=== PATIENT | female | born 1960 | race Caucasian/White ===

== ENCOUNTER 2017-02-12 22:35 | Emergency (ER) | payer MEDICAID, OTHER ==
[2017-02-12 22:44] VITALS: TEMP 97.3
--- NOTE | 2017-02-12 22:55 | CPEKG ---
Heart Rate: 54 RR Interval: 1111 P-R Interval: 152 QRSD Interval: 90 QT Interval: 484 QTC Interval: 459 P Rialto: 12 QRS Rialto: 49 T Wave Rialto: 78 EKG Severity - NORMAL ECG - EKG Impression: SINUS RHYTHM Electronically Signed By: Mari aEsther Hu 13-Feb-2017 07:27:42
--- NOTE | 2017-02-12 23:05 | EDPHY ---
H & P Stated Complaint: nausea, dizzy, substernal pressure since 1800 Source: Patient Exam Limitations: No limitations - Personal History Current Tetanus/Diphtheria Vaccine: Yes Current Tetanus Diphtheria and Acellular Pertussis (TDAP): Yes Tetanus Vaccine Date: < 10 YEARS - Medical/Surgical History Hx Asthma: No Hx Chronic Respiratory Disease: No Hx Diabetes: No Hx Cardiac Disease: No Hx Renal Disease: No Hx Cirrhosis: No Hx Alcoholism: No Hx HIV/AIDS: No Hx Splenectomy or Spleen Trauma: No Other PMH: MIGRAINES - Social History Smoking Status: Never smoked HPI/ROS: CHIEF COMPLAINT: Chest Pain, nausea, dizziness HISTORY OF PRESENT ILLNESS: Complains of sudden onset of nausea and dizziness while doing an exercise in a supine position around 6:00 p.m.. This has been constant. [id number]. Worse with change of head position. Chest pain that started around 8:00 p.m. and lasted until 10:00 p.m.. It is described as a mild pressure. Did not radiate. No diaphoresis. No shortness of breath. No abdominal pain. No recent travel or surgery. No history of venous thrombolic event. No previous history of chest pain or chest pain workup. No coronary artery disease, hypertension, diabetes, dyslipidemia. Does describe a previous history of vertigo without formal treatment. No other associated complaints or modifying factors. FAMILY HISTORY CARDIAC: Denies PRIOR CARDIAC WORKUP: None REVIEW OF SYSTEMS: Ten systems reviewed and are negative unless otherwise noted in the HPI EXAMINATION: General Appearance: Alert, no distress Head: normocephalic, atraumatic Eyes: Pupils equal and round, no conjunctival pallor or injection. EOMs intact. Horizontal nystagmus. No vertical nystagmus. ENT, Mouth: Mucous membranes moist. Uvula midline. No erythema or edema. Neck: Normal inspection, supple, non-tender Respiratory: Lungs are clear to auscultation. No wheezing, rhonchi or crackles. Cardiovascular: Regular rate and rhythm. No murmur. Pulses intact distally. No carotid bruits. Gastrointestinal: Abdomen is soft and nontender Back: non-tender, no bony abnormalities Neurological: GCS 15. A&O, nonfocal, strength is symmetric in all 4 limbs. Normal steady gait. No pronator drift. No dysmetria. NIH stroke scale is 0. Skin: Warm and dry, no rash Extremities: Nontender, no pedal edema Psychiatric: Mood and affect normal DIFFERENTIAL DIAGNOSES: Including but not limited to in no particular order: Acute Chest Pain, ACS, Stable Angina, Pneumonia, PE, duodenitis, gastritis, esophagitis, GERD MDM: 11:05 p.m. Dizziness and nausea consistent with vertigo since 6:00 p.m.. Chest pressure that lasted from 8-10 p.m. and is no longer present. Vital signs stable. Laboratory studies and chest x-ray are pending. EKG is unremarkable. She is resting comfortably in no acute distress. She has declined meclizine 12:35 a.m. Troponin is negative. She remains mildly dizzy but has declined meclizine several times. We discussed her findings. I also discussed that she likely has vertigo. I recommended admission for ACS rule out with subsequent troponins as her 1st 1 was drawn at approximately 3:00 a.m.. She has declined. We discussed the risks , benefits and alternatives. She is capable making the decision assuming the risk including CO, worsening condition, , stroke. She understands the risks and would still like to be discharged home. She has still declined the medication and will return should her symptoms change. EKG: Interpreted by Dr. Hu Normal sinus rhythm without acute ischemia. SUPERVISION: Case discussed with Dr. Hu ([facility]) Constitutional: Initial Vital Signs Temperature (C) 36.3 C 02/12/17 22:37 Heart Rate 68 02/12/17 22:37 Respiratory Rate 20 02/12/17 22:37 Blood Pressure 153/101 H 02/12/17 22:37 O2 Sat (%) 100 02/12/17 22:37 O2 Delivery Mode Room Air Allergies/Adverse Reactions: No Known Allergies Allergy (Verified 02/12/17 22:44) Home Medications: Medication Instructions Recorded Aspirin 325 mg (*) 02/12/17 Medical Decision Making - Diagnostics EKG Interpretation: EKG: Complete interpretation has been separately recorded in the [employer] archive. Summary impression: No ischemic changes (Maria Esther Hu) Imaging Results: Imaging Impressions Chest X-Ray 02/12/17 23:05 Impression: No acute localizing features. Other Provider: PHYSICIAN DOCUMENTATION: The patient was evaluated and managed by the Physician Traffic Signal Mechanic. My co- signature indicates that I have reviewed this chart and I agree with the findings and plan of care as documented. I am the secondary supervising physician. (Maria Esther Hu) - Data Points Laboratory Results: Laboratory Results 02/12/17 23:00 02/12/17 23:25 02/12/17 02/12/17 02/12/17 23: 23:00 23:00 WBC RBC Hgb Hct MCV MCH MCHC RDW Plt Count MPV Neut % (Auto) Lymph % (Auto) [place] % (Auto) Eos % (Auto) Baso % (Auto) Nucleat RBC Rel Count Absolute Neuts (auto) Absolute Lymphs (auto) Absolute Monos (auto) Absolute Eos (auto) Absolute Basos (auto) Absolute Nucleated RBC Immature Gran % Immature Gran # PT 12.7 SEC SEC (12.0-15.0) INR 0.96 (0.83-1.16) APTT 23.9 SEC SEC (23.0-38.0) Sodium 140 mEq/L mEq/L TNP (134-144) Potassium 3.6 mEq/L mEq/L TNP (3.5-5.2) Chloride 108 mEq/L mEq/L TNP (97-110) Carbon Dioxide 20 mEq/l L mEq/l TNP (22-31) Anion Gap 12 mEq/L mEq/L TNP (8-16) BUN 18 mg/dL mg/dL TNP (7-23) Creatinine 0.7 mg/dL mg/dL TNP (0.6-1.0) Estimated GFR > 60 TNP Glucose 119 mg/dL H mg/dL TNP (70-100) Calcium 9.8 mg/dL mg/dL TNP (8.5-10.4) Troponin I < 0.012 ng/mL ng/mL TNP (0-0.034) NT-Pro-B Natriuret Pep 113 pg/mL pg/mL TNP (0-125) Lipase 56.0 IU/L IU/L TNP (23-300) 02/12/17 23:00 WBC 8.07 10^3/uL 10^3/uL (3.80-9.50) RBC 4.63 10^6/uL 10^6/uL (4.18-5.33) Hgb 14.6 g/dL g/dL (12.6-16.3) Hct 42.6 % % (38.0-47.0) MCV 92.0 fL fL (81.5-99.8) MCH 31.5 pg pg (27.9-34.1) MCHC 34.3 g/dL g/dL (32.4-36.7) RDW 12.6 % % (11.5-15.2) Plt Count 248 10^3/uL 10^3/uL (150-400) MPV 10.9 fL fL (8.7-11.7) Neut % (Auto) 68.6 % % (39.3-74.2) Lymph % (Auto) 21.4 % % (15.0-45.0) [place] % (Auto) 6.6 % % (4.5-13.0) Eos % (Auto) 2.7 % % (0.6-7.6) Baso % (Auto) 0.6 % % (0.3-1.7) Nucleat RBC Rel Count 0.0 % % (0.0-0.2) Absolute Neuts (auto) 5.53 10^3/uL 10^3/uL (1.70-6.50) Absolute Lymphs (auto) 1.73 10^3/uL 10^3/uL (1.00-3.00) Absolute Monos (auto) 0.53 10^3/uL 10^3/uL (0.30-0.80) Absolute Eos (auto) 0.22 10^3/uL 10^3/uL (0.03-0.40) Absolute Basos (auto) 0.05 10^3/uL 10^3/uL (0.02-0.10) Absolute Nucleated RBC 0.00 10^3/uL 10^3/uL (0-0.01) Immature Gran % 0.1 % % (0.0-1.1) Immature Gran # 0.01 10^3/uL 10^3/uL (0.00-0.10) PT INR APTT Sodium Potassium Chloride Carbon Dioxide Anion Gap BUN Creatinine Estimated GFR Glucose Calcium Troponin I NT-Pro-B Natriuret Pep Lipase Departure - Departure Disposition: Home, Routine, Self-Care Clinical Impression: Vertigo Chest pain Qualifiers: Chest pain type: unspecified Qualified Code(s): R07.9 - Chest pain, unspecified Condition: Good Instructions: Chest Pain (ED), Vertigo (ED) Additional Instructions: Contact [facility] to set up primary care physician in the morning. Return here if she change her mind regarding repeat troponin and/or admission for acute coronary syndrome rule out. Return here for intractable nausea or vomiting. Meclizine is available [id number] should she change her mind Referrals: NONE *PRIMARY CARE P,. [Primary Care Provider] - As per Instructions Bettina Crawford MD [Medical Doctor] - As per Instructions
[2017-02-12 23:11] LABS: % IMMATURE GRANULYOCYTES 0.1 % (0.0-1.1); ABSOLUTE IMMATURE GRANULOCYTES 0.01 10^3/uL (0.00-0.10); ADD DIFF? NO; ADD MORPH? NO; ADD SCAN? NO; ATYPICAL LYMPHOCYTE FLAG 0 (0-99); FRAGMENT RBC FLAG 0 (0-99); HEMATOCRIT 42.6 % (38.0-47.0); HEMOGLOBIN 14.6 g/dL (12.6-16.3); LEFT SHIFT FLG 0 (0-99); LIPEMIA HEMOLYSIS FLAG 90 (0-99); MEAN CELL HEMOGLOBIN 31.5 pg (27.9-34.1); MEAN CELL HEMOGLOBIN CONCENTR. 34.3 g/dL (32.4-36.7); MEAN PLATELET VOLUME 10.9 fL (8.7-11.7); PLATELET CLUMPS FLAG 0 (0-99); PLATELET COUNT 248 10^3/uL (150-400); RED BLOOD CELL COUNT 4.63 10^6/uL (4.18-5.33); RED CELL DISTRIBUTION WIDTH 12.6 % (11.5-15.2)
[2017-02-12 23:21] LABS: INR 0.96 (0.83-1.16); PROTIME(PATIENT) 12.7 SEC (12.0-15.0)
[2017-02-12 23:22] LABS: APTT 23.9 SEC (23.0-38.0)
[2017-02-12 23:52] LABS: ANION GAP 12 mEq/L (8-16); CALCIUM 9.8 mg/dL (8.5-10.4); CARBON DIOXIDE 20 mEq/l (22-31); CHLORIDE 108 mEq/L (97-110); CREATININE 0.7 mg/dL (0.6-1.0); GLOMERULAR FILTRATION RATE > 60; GLUCOSE 119 mg/dL (70-100); POTASSIUM 3.6 mEq/L (3.5-5.2); SODIUM 140 mEq/L (134-144)
[2017-02-13 00:04] LABS: TROPONIN I < 0.012 ng/mL (0-0.034)
[2017-02-13 00:38] VITALS: BP 140/70; PULSE 72; RESP 14; O2SAT 96
== END 2017-02-13 00:42 | disposition home or self-care (01) ==
DX: R42 Dizziness and giddiness (principal); R07.9 Chest pain, unspecified; Z79.82 Long term (current) use of aspirin